=== PATIENT | male | born 1940 | race American Indian/Alaskan Native ===

== ENCOUNTER 2017-11-03 03:17 | Emergency (ER) | payer MEDICARE ==
[2017-11-03 03:25] VITALS: BP 140/60
--- NOTE | 2017-11-03 04:55 | XRay Report ---
FINAL REPORT EXAM: XR HIP 2-3V RT HISTORY: Rt hip pain post Fall TECHNIQUE: Two views of the right hip were obtained along with an AP view the pelvis. FINDINGS: There is generalized osteoporosis. The right hip joint appears normal. There is no evidence of fracture. The bony pelvic ring appears intact there is previous total left hip arthroplasty. The soft tissues are unremarkable. IMPRESSION: No evidence of acute fracture of the right hip or pelvis.
--- NOTE | 2017-11-03 04:58 | XRay Report ---
FINAL REPORT EXAM: XR KNEE 1-2V RT HISTORY: RIGHT KNEE PAIN TECHNIQUE: Three views of the right knee were submitted. FINDINGS: The patient is status post total right knee arthroplasty. On the lateral view, there is a suspicious linear radiolucency along the ventral aspect of the distal femoral metaphysis adjacent to the prosthesis. A localize hairline fracture cannot be excluded. Joint fluid is not seen. No additional hardware complications are seen. IMPRESSION: Status post total right knee arthroplasty. Questionable linear hairline fracture along the ventral aspect of the distal femoral metaphysis adjacent to the prosthesis.
[2017-11-03 07:19] LABS: Basophils % (Auto) 0.6 % (0.0-1.8); Eosinophils # (Auto) 0.1 K/mm3 (0.0-0.4); Eosinophils % (Auto) 0.8 % (0.0-4.3); Hematocrit 29.3 % (35.5-45.6); Hemoglobin 9.6 gm/dl (11.8-15.2); Lymphocytes # (Auto) 1.3 K/mm3 (1.2-5.4); Mean Corpuscular HGB Conc 33 % (32-34); Mean Corpuscular Hemoglobin 33 pg (28-32); Mean Corpuscular Volume 101 fl (84-94); Monocytes # (Auto) 0.5 K/mm3 (0.0-0.8); Monocytes % (Auto) 7.4 % (0.0-7.3); Platelet Count 138 K/mm3 (140-440); Red Blood Count 2.92 M/mm3 (3.65-5.03); Red Cell Distribution Width 15.6 % (13.2-15.2)
[2017-11-03 07:33] LABS: Calcium 8.4 mg/dL (8.4-10.2)
--- NOTE | 2017-11-03 08:17 | Emergency Department Report ---
HPI - General Chief Complaint: Fall Time Seen by Provider: 11/03/17 06:17 - HPI HPI: 77-year-old male presents to the emergency department by EMS after he fell out of his wheelchair while trend reach for something. He previously voiced to EMS that he had been drinking some alcohol this evening. He complains mostly of pain to the right hip and right knee. He has a history of hypertension. He also has a history of right knee replacement and is nonambulatory at baseline. He says that he lives alone and despite being in a wheelchair is able to get to the bathroom and take care of his activities of daily living. He denies hitting his head or any loss of consciousness. ED Past Medical Hx - Past Medical History Hx Hypertension: Yes - Social History Smoking Status: Never Smoker Substance Use Type: Alcohol - Medications Home Medications: Home Medications Medication Instructions Recorded Confirmed Last Taken Type Nitrofurantoin Monohyd/M-Cryst 100 mg PO BID #14 capsule 11/03/17 Unknown Rx [Macrobid 100 mg Capsule] ED Review of Systems ROS: Stated complaint: GLF Other details as noted in HPI Comment: All other systems reviewed and negative Constitutional: denies: chills, fever Eyes: denies: eye pain, eye discharge, vision change ENT: denies: ear pain, throat pain Respiratory: denies: cough, shortness of breath, wheezing Cardiovascular: denies: chest pain, palpitations Gastrointestinal: denies: abdominal pain, nausea, diarrhea Genitourinary: denies: urgency, dysuria Musculoskeletal: arthralgia, myalgia Skin: denies: rash, lesions Neurological: denies: headache, numbness Physical Exam - Physical Exam Vital Signs: Vital Signs 11/03/17 03:19 Temperature 98 F Pulse Rate 82 Respiratory 20 Rate Blood Pressure 140/60 [Left] O2 Sat by Pulse 97 Oximetry Physical Exam: GENERAL: The patient is well-developed well-nourished. HENT: Normocephalic. Atraumatic. Patient has moist mucous membranes. EYES: Extraocular motions are intact. Pupils equal reactive to light bilaterally. NECK: Supple. Trachea is midline. CHEST/LUNGS: Clear to auscultation. There is no respiratory distress noted. HEART/CARDIOVASCULAR: Regular. There is no tachycardia. There is no murmur. ABDOMEN: Abdomen is soft, nontender. Patient has normal bowel sounds. There is no abdominal distention. SKIN: Skin is warm and dry. NEURO: The patient is awake, alert, and oriented. The patient is cooperative. The patient has no focal neurologic deficits. The patient has normal speech. MUSCULOSKELETAL: There is some tenderness palpation to the right thigh and right knee but no obvious deformity. ED Course Vital Signs 11/03/17 03:19 Temperature 98 F Pulse Rate 82 Respiratory 20 Rate Blood Pressure 140/60 [Left] O2 Sat by Pulse 97 Oximetry ED Medical Decision Making - Lab Data Result diagrams: 11/03/17 06:56 11/03/17 06:56 - Radiology Data Radiology results: report reviewed CT HEAD WITHOUT CONTRAST: HISTORY: Fall, head injury. TECHNIQUE: Sequential CT images without contrast. FINDINGS: Images obtained show bilateral prominence of the sulci and ventricles. There are no abnormal intra- or extra-axial blood or fluid collections. There are no focal masses or evidence of mass effect. The chun white matter differentiation appears within normal limits. Regions of periventricular decreased attenuation are consistent with microangiopathic ischemic disease. The posterior fossa structures including the fourth ventricle, cerebellum, and brainstem appear normal. IMPRESSION: Evidence of atrophy and microangiopathic ischemic disease. No acute intracranial process noted. Transcribed By: TTR Dictated By: OFELIA PERAZA JR, MD Electronically Authenticated By: OFELIA PERAZA JR, MD Signed Date/Time: 11/03/[address] LOWER EXTREMITY RIGHT WITHOUT CONTRAST HISTORY: Questionable distal right femoral fracture on x-ray. TECHNIQUE: Helical CT with sagittal and coronal reformatted images through both femurs. Findings: Left hip replacement and right knee replacement generate artifact. The bony structures are demineralized but intact. There is no evidence for fracture. There is mild soft tissue swelling or edema near the right knee. IMPRESSION: No evidence for right femur fracture. Transcribed By: TTR Dictated By: OFELIA PERAZA JR, MD Electronically Authenticated By: OFELIA PERAZA JR, MD Signed Date/Time: 11/03/17 0857 - Medical Decision Making Patient presents after a ground level fall from his wheelchair. The patient has a history of some alcohol abuse and/or dependence and was found have a elevated blood alcohol level once again. CT of the head did not show any bleed , shift, mass or any acute process. He had x-rays done of the right hip, pelvis and right knee prior to my shift this morning and there was a questionable hairline fracture to the distal right femur. For this reason I did a CT of the right lower extremity that did not show any signs of any fracture. The patient is nonambulatory at baseline. His daughter came by and is arranging for transportation back home for him. The patient does live at home alone but is able to do his ADLs. He has a mild urinary tract infection we 'll start her on Macrobid. The daughter wants him to go to a detention or assisted living facility, but the patient has been resistant to this and since he still has the capacity to make his own decisions and is his own medical decision maker, he cannot be made to do this against his will. However I did spend some time with the patient trying to explain the need to stop his drinking for both his own medical benefits as well as the ability to continue to take care of himself at home, as what he desires to do. He's been encouraged to follow up with the primary care doctor in the next few days and return to ER with any worsening of symptoms or any acute distress. He was given a referral for a local orthopedist, Dr. Barrientos, in case he wants to follow up regarding his right leg pain - Differential Diagnosis fracture, dislocation, contusion, alcohol intoxication, dementia Critical Care Time: No Critical care attestation.: If time is entered above; I have spent that time in minutes in the direct care of this critically ill patient, excluding procedure time. ED Disposition Clinical Impression: Right leg pain, Renal insufficiency Fall from wheelchair Qualifiers: Encounter type: initial encounter Qualified Code(s): W05.0XXA - Fall from non- moving wheelchair, initial encounter Alcohol intoxication Qualifiers: Complication of substance-induced condition: uncomplicated Qualified Code(s): F10.920 - Alcohol use, unspecified with intoxication, uncomplicated Disposition: DC-01 TO HOME OR SELFCARE Is pt being admited?: No Condition: Stable Instructions: Alcohol Intoxication (ED), Abuse of Alcohol (ED), Arthralgia (ED) , Impaired Kidney Function (ED) Additional Instructions: Please follow up with a primary care physician. I have given you a referral for a local orthopedist, Dr. Barrientos, in case he would like to follow up regarding your leg pain. It is recommended that he stay away from any further alcohol use/abuse so you do not have any further falls and can continue with your activities of daily living. I have also given you a referral for a local manager document, Dr. Ashby, to follow up regarding your impaired kidney function. Return to the emergency Department with any worsening of your symptoms or any acute distress. Prescriptions: Nitrofurantoin Monohyd/M-Cryst [Macrobid 100 mg Capsule] 100 mg PO BID #14 capsule Referrals: MAIA BARRIENTOS MD [Staff Physician] - 3-5 Days VISH ASHBY MD [Staff Physician] - 3-5 Days Time of Disposition: 09:50
--- NOTE | 2017-11-03 09:02 | Cat Scan Report ---
CT HEAD WITHOUT CONTRAST: HISTORY: Fall, head injury. TECHNIQUE: Sequential CT images without contrast. FINDINGS: Images obtained show bilateral prominence of the sulci and ventricles. There are no abnormal intra- or extra-axial blood or fluid collections. There are no focal masses or evidence of mass effect. The chun white matter differentiation appears within normal limits. Regions of periventricular decreased attenuation are consistent with microangiopathic ischemic disease. The posterior fossa structures including the fourth ventricle, cerebellum, and brainstem appear normal. IMPRESSION: Evidence of atrophy and microangiopathic ischemic disease. No acute intracranial process noted.
--- NOTE | 2017-11-03 09:03 | Cat Scan Report ---
CT LOWER EXTREMITY RIGHT WITHOUT CONTRAST HISTORY: Questionable distal right femoral fracture on x-ray. TECHNIQUE: Helical CT with sagittal and coronal reformatted images through both femurs. Findings: Left hip replacement and right knee replacement generate artifact. The bony structures are demineralized but intact. There is no evidence for fracture. There is mild soft tissue swelling or edema near the right knee. IMPRESSION: No evidence for right femur fracture.
[2017-11-03] MEDS ORDERED: KIONEX PO ONE (09:51)
[2017-11-03] MEDS ORDERED: VITAMIN B-1 100 MG, FOLVITE 1 MG, INFUVITE 10 ML in NACL 0.9% 1000 ML 1,000 ML IV ONE (10:00)
[2017-11-03] MEDS ORDERED: VITAMIN B-1 PO ONE (10:51)
[2017-11-03] MEDS ORDERED: THERAGRAN Tab PO ONE (10:51)
[2017-11-03 12:28] LABS: Bacteria,Urine 3+ /HPF (Negative); Bilirubin,Urine NEG (Negative); Blood,Urine LG (Negative); Color,Urine Yellow (Yellow); Granular Casts,Urine 1 /LPF; Hyaline Casts,Urine 1 /LPF; Nitrite,Urine NEG (Negative); Protein,Urine <15 mg/dL mg/dL (Negative); Urobilinogen,Urine < 2.0 mg/dL (<2.0)
== END 2017-11-03 15:30 | disposition home or self-care (01) ==
LOC: ED 03:17
DX: F10.920 Alcohol use, unspecified with intoxication, uncomplicated (principal); M25.561 Pain in right knee; N28.9 Disorder of kidney and ureter, unspecified; I10 Essential (primary) hypertension
CPT/HCPCS: 36415; 70450; 73502; 73560; 73700; 80048; 81001; 82550; 85025; 99284; G0480; J3411; J7030; 80320

== ENCOUNTER 2018-05-29 07:34 | Emergency (ER) | payer MEDICARE ==
--- NOTE | 2018-05-29 10:15 | Emergency Department Report ---
ED Fall HPI - General Chief Complaint: Fall Stated Complaint: FALL/KNEE PAIN Time Seen by Provider: 05/29/18 10:03 Source: patient, EMS, old records reviewed Mode of arrival: Wheelchair - History of Present Illness Initial Comments: Mr. Horne is 78 yo male who presents after fall out of bed. this morning. He missed the chair and slipped. He was normally uses a chiar to move around. He lives alone but has supportive daughter. moderately severe pain in left thigh "in the muscle". PCP Dr. 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 Witnessed: no Place Fall Occurred: home Loss of Consciousness: none Prolonged Down Time?: no Symptoms Prior to Fall: none Location - Extremities: Left: Thigh Severity: moderate Quality: sharp, dull, aching Context: tripped/slipped, history of frequent falls Associated Symptoms: denies - Related Data Previous Rx's Medication Instructions Recorded Last Taken Type Nitrofurantoin Monohyd/M-Cryst 100 mg PO BID #14 capsule 11/03/17 Unknown Rx [Macrobid 100 mg Capsule] traMADol [Ultram 50 MG tab] 50 mg PO TID PRN #10 tablet 05/29/18 Unknown Rx Allergies Allergy/AdvReac Type Severity Reaction Status Date / Time No Known Allergies Allergy Verified 11/03/17 09:18 ED Review of Systems ROS: Stated complaint: FALL/KNEE PAIN Other details as noted in HPI Comment: All other systems reviewed and negative Constitutional: denies: fever, malaise Respiratory: denies: cough Cardiovascular: denies: chest pain ED Past Medical Hx - Past Medical History Previous Medical History?: Yes Hx Hypertension: Yes - Surgical History Past Surgical History?: Yes Additional Surgical History: rt knee sx. - Social History Smoking Status: Never Smoker Substance Use Type: Alcohol - Medications Home Medications: Home Medications Medication Instructions Recorded Confirmed Last Taken Type Nitrofurantoin Monohyd/M-Cryst 100 mg PO BID #14 capsule 11/03/17 Unknown Rx [Macrobid 100 mg Capsule] traMADol [Ultram 50 MG tab] 50 mg PO TID PRN #10 tablet 05/29/18 Unknown Rx ED Physical Exam - General Limitations: No Limitations General appearance: alert, in no apparent distress - Head Head exam: Present: atraumatic, normocephalic - Eye Eye exam: Present: normal appearance, PERRL, EOMI - ENT ENT exam: Present: mucous membranes moist - Neck Neck exam: Present: normal inspection. Absent: tenderness, meningismus - Respiratory Respiratory exam: Present: normal lung sounds bilaterally. Absent: respiratory distress, wheezes, rales, rhonchi - Cardiovascular Cardiovascular Exam: Present: regular rate, normal rhythm, normal heart sounds. Absent: systolic murmur, diastolic murmur, rubs, gallop - GI/Abdominal GI/Abdominal exam: Present: soft, normal bowel sounds. Absent: distended, tenderness - Extremities Exam Extremities exam: Present: normal inspection, other (no edema or point tenderness surgical scar right knee, surgical scar left hip 2+ DP pulses bilaterally) - Back Exam Back exam: Present: normal inspection, full ROM. Absent: tenderness, CVA tenderness (R), CVA tenderness (L), muscle spasm, paraspinal tenderness, vertebral tenderness - Neurological Exam Neurological exam: Present: alert, oriented X3 - Psychiatric Psychiatric exam: Present: normal affect, normal mood - Skin Skin exam: Present: warm, dry, intact, normal color. Absent: rash ED Course Vital Signs 05/29/18 05/29/18 05/29/18 08:01 08:23 08:29 Temperature 98.0 F 98.0 F Pulse Rate 87 87 Respiratory 16 16 Rate Blood Pressure 162/53 Blood Pressure 162/53 162/53 [Left] O2 Sat by Pulse 100 100 100 Oximetry 05/29/18 05/29/18 05/29/18 08:30 08:45 09:00 Temperature Pulse Rate Respiratory Rate Blood Pressure 169/62 181/68 179/67 Blood Pressure [Left] O2 Sat by Pulse 97 98 99 Oximetry 05/29/18 05/29/18 05/29/18 09:15 09:30 09:46 Temperature Pulse Rate Respiratory Rate Blood Pressure 170/63 162/61 155/54 Blood Pressure [Left] O2 Sat by Pulse 99 99 97 Oximetry 05/29/18 05/29/18 05/29/18 10:00 10:15 10:56 Temperature Pulse Rate Respiratory 17 Rate Blood Pressure 154/59 174/66 Blood Pressure [Left] O2 Sat by Pulse 97 100 Oximetry 05/29/18 05/29/18 05/29/18 10:57 11:00 11:15 Temperature Pulse Rate Respiratory Rate Blood Pressure 174/66 181/120 178/69 Blood Pressure [Left] O2 Sat by Pulse 100 99 100 Oximetry 05/29/18 05/29/18 05/29/18 11:30 11:46 12:00 Temperature Pulse Rate Respiratory Rate Blood Pressure 189/67 171/60 171/60 Blood Pressure [Left] O2 Sat by Pulse 99 100 100 Oximetry 05/29/18 05/29/18 05/29/18 12:15 12:31 12:45 Temperature Pulse Rate Respiratory Rate Blood Pressure 191/69 168/58 186/67 Blood Pressure [Left] O2 Sat by Pulse 98 95 97 Oximetry ED Medical Decision Making - Radiology Data Radiology results: image reviewed interpreted by me: Right knee: [address] with surrounding osteopenia no fracture no dislocation Left hip 3 views: Prosthesis in place no fracture or dislocation Left femur: 2 views no fracture no dislocation no soft tissue swelling - Medical Decision Making Mr. Horne presents with fall out of bed. No fracture or dislocation according to radiographs performed of left hip/femur and bilateral knees. He has full range of motion in left hip. According to previous documentation he has limited ability to ambulate. He is able to prepare simple meals. he does eat and clean himself. Prescribed tramadol. Discharged home. He desired ambulanace transfer home. He stated that his 2 daughters are working and would be unable to transport home. Critical care attestation.: If time is entered above; I have spent that time in minutes in the direct care of this critically ill patient, excluding procedure time. ED Disposition Clinical Impression: Fall, Contusion of right knee, Contusion of left thigh Disposition: DC-01 TO HOME OR SELFCARE Is pt being admited?: No Does the pt Need Aspirin: No Condition: Stable Instructions: Contusion in Adults (ED) Prescriptions: traMADol [Ultram 50 MG tab] 50 mg PO TID PRN #10 tablet PRN Reason: Pain , Severe (7-10) Time of Disposition: 13:21
[2018-05-29] MEDS ORDERED: ULTRAM PO ONE (10:16)
--- NOTE | 2018-05-29 15:54 | XRay Report ---
FINAL REPORT EXAM: XR FEMUR 2+V LT HISTORY: fall pain COMPARISON: None. TECHNIQUE: Three views of the left femur FINDINGS: There is a left hip arthroplasty. The femur is intact without acute fracture or dislocation. There is osteophyte formation at the level of the knee. There is no joint effusion. The overlying soft tissues are intact. IMPRESSION: No acute bony abnormality of the left femur. Left hip arthroplasty. No acute hardware complication.
--- NOTE | 2018-05-29 15:56 | XRay Report ---
FINAL REPORT EXAM: XR HIP 2-3V LT HISTORY: fall pain COMPARISON: None. TECHNIQUE: Three views of the left hip FINDINGS: There is a left hip arthroplasty. The femoral and acetabular components are intact and in anatomic alignment. There is no acute bony fracture or dislocation. The sacroiliac joints and symphysis pubis are intact. There is diffuse osteopenia. The overlying soft tissues are normal. IMPRESSION: Left hip arthroplasty. No acute hardware complication. No acute fracture or dislocation.
--- NOTE | 2018-05-29 16:02 | XRay Report ---
FINAL REPORT EXAM: XR KNEE BILAT 3V HISTORY: fall/pain COMPARISON: Radiographs of the right knee performed on 11/03/2017 TECHNIQUE: Three views of each knee FINDINGS: Right knee: There is a right knee arthroplasty. The femoral and tibial components appear intact. There is no acute bony fracture or dislocation. The overlying soft tissues are normal. Left knee: There is tricompartmental joint space narrowing with osteophyte formation. There is no joint effusion. The overlying soft tissues are intact. There is an old fracture of the proximal fibula. IMPRESSION: Right knee arthroplasty without acute hardware complication. 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 Remote fracture of the left proximal fibula.
[2018-05-29 17:31] VITALS: BP 181/59
== END 2018-05-29 17:10 | disposition home or self-care (01) ==
LOC: ED 07:34
DX: S70.12XA Contusion of left thigh, initial encounter (principal); S80.01XA Contusion of right knee, initial encounter; I10 Essential (primary) hypertension; M25.552 Pain in left hip; W01.0XXA Fall on same level from slipping, tripping and stumbling without subsequent striking against object, initial encounter; Y93.89 Activity, other specified; Y99.8 Other external cause status; Y92.019 Unspecified place in single-family (private) house as the place of occurrence of the external cause

== ENCOUNTER 2019-08-18 12:17 | Emergency (ER) | payer MEDICARE ==
[2019-08-18] MEDS ORDERED: guaiFENesin 100 MG/5 ML ORAL LIQD PO ONE (13:25)
[2019-08-18] MEDS ORDERED: cloNIDine 0.2 MG TAB PO ONE (13:25)
--- NOTE | 2019-08-18 13:37 | Emergency Department Report ---
- General Chief Complaint: Upper Respiratory Infection Stated Complaint: GENERAL SICKNESS Time Seen by Provider: 08/18/19 13:25 Source: EMS Mode of arrival: Stretcher Limitations: No Limitations - History of Present Illness Initial Comments: This is a 79-year-old male who presents to ED complaining of intermittent dry cough and for the past 2-3 days. Patient denies fever, chills, nausea vomiting or chest pain, shortness of breath. he has a past medical history of hypertension well as chronic kidney disease and states that he takes his medication daily. 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 Patient states he has not taken his pressure medication today because he felt sick, though he wanted to come in and to be evaluated. MD Complaint: cough, nasal congestion Severity: mild Severity scale (0 -10): 4 - Related Data Previous Rx's Medication Instructions Recorded Last Taken Type Nitrofurantoin Monohyd/M-Cryst 100 mg PO BID #14 capsule 11/03/17 Unknown Rx [Macrobid 100 mg Capsule] Acetaminophen [Acetaminophen TAB] 650 mg PO Q4-6H PRN #30 tablet 06/11/18 Unknown Rx Calcium Carb/Vit D3/Minerals 1 each PO BID #60 tablet 06/11/18 Unknown Rx [Caltrate Plus] amLODIPine 5 mg PO QDAY #30 tablet 06/11/18 Unknown Rx hydroCHLOROthiazide [HCTZ] 25 mg PO QDAY #30 tablet 06/11/18 Unknown Rx traMADoL [Ultram 50 MG tab] 50 mg PO TID PRN #10 tablet 06/11/18 Unknown Rx Acetamin/Codeine 120-12Mg/5 ml 5 ml PO TID PRN #60 ml 08/18/19 Unknown Rx [Tylenol/Codeine] Benzonatate [Tessalon Perles] 100 mg PO Q8HR #20 capsule 08/18/19 Unknown Rx Allergies Allergy/AdvReac Type Severity Reaction Status Date / Time No Known Allergies Allergy Verified 11/03/17 09:18 ED Review of Systems ROS: Stated complaint: GENERAL SICKNESS Other details as noted in HPI ED Past Medical Hx - Past Medical History Previous Medical History?: Yes Hx Hypertension: Yes Hx Arthritis: Yes Hx HIV: No - Surgical History Past Surgical History?: Yes Additional Surgical History: rt knee sx. - Social History Smoking Status: Unknown if ever smoked Substance Use Type: None - Medications Home Medications: Home Medications Medication Instructions Recorded Confirmed Last Taken Type Nitrofurantoin Monohyd/M-Cryst 100 mg PO BID #14 capsule 11/03/17 06/09/18 Unknown Rx [Macrobid 100 mg Capsule] Acetaminophen [Acetaminophen TAB] 650 mg PO Q4-6H PRN #30 tablet 06/11/18 Unknown Rx Calcium Carb/Vit D3/Minerals 1 each PO BID #60 tablet 06/11/18 Unknown Rx [Caltrate Plus] amLODIPine 5 mg PO QDAY #30 tablet 06/11/18 Unknown Rx hydroCHLOROthiazide [HCTZ] 25 mg PO QDAY #30 tablet 06/11/18 Unknown Rx traMADoL [Ultram 50 MG tab] 50 mg PO TID PRN #10 tablet 06/11/18 Unknown Rx Acetamin/Codeine 120-12Mg/5 ml 5 ml PO TID PRN #60 ml 08/18/19 Unknown Rx [Tylenol/Codeine] Benzonatate [Tessalon Perles] 100 mg PO Q8HR #20 capsule 08/18/19 Unknown Rx ED Physical Exam - General Limitations: No Limitations ED Course Vital Signs 08/18/19 08/18/19 08/18/19 12:48 13:09 13:31 Temperature 98.2 F Pulse Rate 77 71 66 Pulse Rate [ Anterior Bilateral Throughout] Respiratory 18 20 19 Rate Respiratory Rate [Anterior Bilateral Throughout] Blood Pressure 210/90 184/75 Blood Pressure [Right] O2 Sat by Pulse 98 100 Oximetry 08/18/19 08/18/19 08/18/19 14:01 14:31 15:00 Temperature Pulse Rate 67 73 76 Pulse Rate [ Anterior Bilateral Throughout] Respiratory 19 20 21 Rate Respiratory Rate [Anterior Bilateral Throughout] Blood Pressure 195/65 197/77 181/66 Blood Pressure [Right] O2 Sat by Pulse 96 98 96 Oximetry 08/18/19 08/18/19 08/18/19 15:19 15:30 15:31 Temperature Pulse Rate 76 77 74 Pulse Rate [ Anterior Bilateral Throughout] Respiratory 17 21 Rate Respiratory Rate [Anterior Bilateral Throughout] Blood Pressure 181/66 199/83 Blood Pressure 100/59 [Right] O2 Sat by Pulse 100 96 Oximetry 08/18/19 08/18/19 08/18/19 15:46 16:00 16:57 Temperature Pulse Rate 73 63 Pulse Rate [ 108 H Anterior Bilateral Throughout] Respiratory 16 21 Rate Respiratory 20 Rate [Anterior Bilateral Throughout] Blood Pressure 173/71 Blood Pressure 107/50 [Right] O2 Sat by Pulse 100 96 Oximetry 08/18/19 17:15 Temperature Pulse Rate Pulse Rate [ Anterior Bilateral Throughout] Respiratory Rate Respiratory Rate [Anterior Bilateral Throughout] Blood Pressure 167/72 Blood Pressure [Right] O2 Sat by Pulse 85 Oximetry - Reevaluation(s) Reevaluation #1: She is resting comfortably ED bed. On reassessment, patient saturating To 96. albuterol inhaler nebulized treatment ordered. Discussed chest x-ray findings with the patient. Patient understands 08/18/19 15:34 ED Medical Decision Making - Lab Data Result diagrams: 08/18/19 14:31 08/18/19 14:31 Laboratory Last Values WBC 5.3 K/mm3 (4.5-11.0) 08/18/19 14:31 RBC 2.54 M/mm3 (3.65-5.03) L 08/18/19 14:31 Hgb 8.1 gm/dl (11.8-15.2) L 08/18/19 14:31 Hct 25.0 % (35.5-45.6) L 08/18/19 14:31 MCV 98 fl (84-94) H 08/18/19 14:31 MCH 32 pg (28-32) 08/18/19 14:31 MCHC 32 % (32-34) 08/18/19 14:31 RDW 16.2 % (13.2-15.2) H 08/18/19 14:31 Plt Count 130 K/mm3 (140-440) L 08/18/19 14:31 Lymph % (Auto) 23.3 % (13.4-35.0) 08/18/19 14:31 Casey % (Auto) 7.9 % (0.0-7.3) H 08/18/19 14:31 Eos % (Auto) 2.3 % (0.0-4.3) 08/18/19 14:31 Baso % (Auto) 0.5 % (0.0-1.8) 08/18/19 14:31 Lymph # 1.2 K/mm3 (1.2-5.4) 08/18/19 14:31 Casey # 0.4 K/mm3 (0.0-0.8) 08/18/19 14:31 Eos # 0.1 K/mm3 (0.0-0.4) 08/18/19 14:31 Baso # 0.0 K/mm3 (0.0-0.1) 08/18/19 14:31 Seg Neutrophils % 66.0 % (40.0-70.0) 08/18/19 14:31 Seg Neutrophils # 3.5 K/mm3 (1.8-7.7) 08/18/19 14:31 Sodium 142 mmol/L (137-145) 08/18/19 14:31 Potassium 4.8 mmol/L (3.6-5.0) 08/18/19 14:31 Chloride 113.2 mmol/L (98-107) H 08/18/19 14:31 Carbon Dioxide 16 mmol/L (22-30) L 08/18/19 14:31 Anion Gap 18 mmol/L 08/18/19 14:31 BUN 27 mg/dL (9-20) H 08/18/19 14:31 Creatinine 2.3 mg/dL (0.8-1.5) H 08/18/19 14:31 Estimated GFR 33 ml/min 08/18/19 14:31 BUN/Creatinine Ratio 12 % 08/18/19 14:31 Glucose 95 mg/dL (75-100) 08/18/19 14:31 Calcium 8.6 mg/dL (8.4-10.2) 08/18/19 14:31 - EKG Data EKG shows normal: sinus rhythm Rate: normal - EKG Data Interpretation: normal EKG - Radiology Data Radiology results: report reviewed, image reviewed INDICATION / CLINICAL INFORMATION: Chest Pain. COMPARISON: Chest CT on 06/10/2018. FINDINGS: SUPPORT DEVICES: None. HEART / MEDIASTINUM: No significant abnormality. LUNGS / PLEURA: No significant pulmonary or pleural abnormality. No pneumothorax. ADDITIONAL FINDINGS: No significant additional findings. IMPRESSION: 1. No acute findings. Signer Name: Kiko Augustine MD Signed: 08/18/2019 2:00 PM Workstation Name: [id number] Transcribed By: LILY Dictated By: Kiko Augustine MD Electronically Authenticated By: Kiko Augustine MD Signed Date/Time: 08/18/19 1400 - Medical Decision Making 79-year-old male who presents with upper respiratory infection. Chest x-ray shows no acute findings. EKG shows no acute findings. Vital signs patient is a acute distress. Clinic and was given in ED to reduce blood pressure. Patient had good ED stay. I discussed all findings with the patient. Patient nods with understanding and I discussed the patient a follow-up extremity physician which he agrees to do that. Patient had no respiratory distress or any acute distress while in the ED. Critical care attestation.: If time is entered above; I have spent that time in minutes in the direct care of this critically ill patient, excluding procedure time. ED Disposition Clinical Impression: Bronchitis Upper respiratory infection Qualifiers: URI type: unspecified viral URI Qualified Code(s): J06.9 - Acute upper respiratory infection, unspecified Disposition: TO HOME OR SELFCARE Is pt being admited?: No Does the pt Need Aspirin: No Condition: Stable Instructions: Upper Respiratory Infection (ED), Acute Bronchitis (ED) Additional Instructions: Follow-up primary care physician Chest x-ray was normal no signs of infection. Please take medication as prescribed. I see have any worsening symptoms return to ED Prescriptions: Benzonatate [Tessalon Perles] 100 mg PO Q8HR #20 capsule Acetamin/Codeine 120-12Mg/5 ml [Tylenol/Codeine] 5 ml PO TID PRN #60 ml PRN Reason: Pain Referrals: [facility] [Outside] - 3-5 Days [facility] [Outside] - 3-5 Days Forms: Accompanied Note, Work/School Release Form(ED) Time of Disposition: 15:29
--- NOTE | 2019-08-18 14:05 | XRay Report ---
CHEST 1 VIEW 08/18/2019 1:23 PM INDICATION / CLINICAL INFORMATION: Chest Pain. COMPARISON: Chest CT on 06/10/2018. FINDINGS: SUPPORT DEVICES: None. HEART / MEDIASTINUM: No significant abnormality. LUNGS / PLEURA: No significant pulmonary or pleural abnormality. No pneumothorax. ADDITIONAL FINDINGS: No significant additional findings. IMPRESSION: 1. No acute findings. Signer Name: Kiko Augustine MD Signed: 08/18/2019 2:00 PM Workstation Name: [email or web address]
[2019-08-18 14:44] LABS: Basophils % (Auto) 0.5 % (0.0-1.8); Eosinophils # (Auto) 0.1 K/mm3 (0.0-0.4); Eosinophils % (Auto) 2.3 % (0.0-4.3); Hemoglobin 8.1 gm/dl (11.8-15.2); Lymphocytes # (Auto) 1.2 K/mm3 (1.2-5.4); Lymphocytes % (Auto) 23.3 % (13.4-35.0); Mean Corpuscular HGB Conc 32 % (32-34); Mean Corpuscular Volume 98 fl (84-94); Monocytes # (Auto) 0.4 K/mm3 (0.0-0.8); Monocytes % (Auto) 7.9 % (0.0-7.3); Platelet Count 130 K/mm3 (140-440); Red Blood Count 2.54 M/mm3 (3.65-5.03); Red Cell Distribution Width 16.2 % (13.2-15.2)
[2019-08-18 15:05] LABS: Calcium 8.6 mg/dL (8.4-10.2)
[2019-08-18] MEDS ORDERED: ALBUTEROL 2.5 MG/3 ML NEBU IH ONE (15:32)
[2019-08-18 18:00] VITALS: BP 167/72
== END 2019-08-18 22:00 | disposition home or self-care (01) ==
LOC: ED 12:17
DX: J40 Bronchitis, not specified as acute or chronic (principal); J06.9 Acute upper respiratory infection, unspecified; I12.9 Hypertensive chronic kidney disease with stage 1 through stage 4 chronic kidney disease, or unspecified chronic kidney disease; N18.9 Chronic kidney disease, unspecified; M19.90 Unspecified osteoarthritis, unspecified site; Z79.899 Other long term (current) drug therapy
CPT/HCPCS: 36415; 71045; 80048; 85025; 93005; 93010; 94640; 94644

== ENCOUNTER 2021-05-21 20:01 | Emergency (ER) | payer MEDICARE ==
[2021-05-21 21:49] LABS: Albumin 4.1 g/dL (3.9-5); Calcium 7.9 mg/dL (8.4-10.2)
[2021-05-21 22:02] LABS: Basophils % (Auto) 0.7 % (0.0-1.8); Eosinophils # (Auto) 0.2 K/mm3 (0.0-0.4); Eosinophils % (Auto) 3.2 % (0.0-4.3); Hematocrit 27.7 % (35.5-45.6); Hemoglobin 8.4 gm/dl (11.8-15.2); Lymphocytes # (Auto) 1.8 K/mm3 (1.2-5.4); Lymphocytes % (Auto) 27.2 % (13.4-35.0); Mean Corpuscular HGB Conc 31 % (32-34); Mean Corpuscular Volume 106 fl (84-94); Monocytes # (Auto) 0.6 K/mm3 (0.0-0.8); Monocytes % (Auto) 8.9 % (0.0-7.3); Platelet Count 163 K/mm3 (140-440); Red Blood Count 2.62 M/mm3 (3.65-5.03); Red Cell Distribution Width 16.2 % (13.2-15.2)
== END 2021-05-22 00:55 | disposition left against medical advice (07) ==
LOC: ED 20:01
DX: D64.9 Anemia, unspecified (principal); Z53.21 Procedure and treatment not carried out due to patient leaving prior to being seen by health care provider
CPT/HCPCS: 36415; 80053; 85025

== ENCOUNTER 2021-12-01 07:09 | Emergency (ER) | payer MEDICARE ==
[2021-12-01] MEDS ORDERED: cloNIDine 0.1 MG TAB PO ONE (07:14)
[2021-12-01 07:40] LABS: Basophils # (Auto) 0.1 K/mm3 (0.0-0.1); Basophils % (Auto) 0.6 % (0.0-1.8); Eosinophils # (Auto) 0.1 K/mm3 (0.0-0.4); Eosinophils % (Auto) 1.4 % (0.0-4.3); Hematocrit 28.4 % (35.5-45.6); Hemoglobin 9.4 gm/dl (11.8-15.2); Lymphocytes # (Auto) 1.2 K/mm3 (1.2-5.4); Lymphocytes % (Auto) 12.9 % (13.4-35.0); Mean Corpuscular HGB Conc 33 % (32-34); Mean Corpuscular Volume 92 fl (84-94); Monocytes # (Auto) 0.5 K/mm3 (0.0-0.8); Monocytes % (Auto) 5.7 % (0.0-7.3); Platelet Count 158 K/mm3 (140-440); Red Blood Count 3.09 M/mm3 (3.65-5.03)
[2021-12-01 08:05] LABS: C-Reactive Protein 1.3 mg/dL (0.00-1.30); Calcium 7.9 mg/dL (8.4-10.2); Uric Acid 6.9 mg/dL (3.5-7.6)
--- NOTE | 2021-12-01 08:29 | XRay Report ---
LEFT HAND 3 VIEWS INDICATION: swelling. COMPARISON: None. IMPRESSION: Osteopenia is evident. There is mild to moderate soft tissue swelling primarily at the l evel of the wrist. On the AP view only, there is suggestion of a subtle nondisplaced cortical defect near the base of the fourth metacarpal. This is not clearly identified on the remaining views. A nond isplaced fracture could be considered if there is point tenderness. The remaining bony structures are intact. Mild diffuse osteoarthritic joint space narrowing throughout the fingers and mild osteoarthr itic changes at the wrist are noted. No erosive joint pathology. If further evaluation is needed, CT could be obtained. Signer Name: James Velasquez Jr, MD Signed: 12/01/2021 8:25 AM Workstation Name: [id number]
[2021-12-01] MEDS ORDERED: cloNIDine 0.2 MG TAB PO ONE (08:39)
[2021-12-01] MEDS ORDERED: HYDROcodone/ACETAMINOPHEN 5-325 MG TAB PO ONE (08:39)
--- NOTE | 2021-12-01 10:00 | Cat Scan Report ---
CT upper extrem LT wo con INDICATION / CLINICAL INFORMATION: abnormal x ray. TECHNIQUE: CT images of the left wrist and hand obtained without intravenous contrast. All CT scans at this loca tion are performed using CT dose reduction for ALARA by means of automated exposure control. COMPARISON: Same-day radiograph FINDINGS: BONES/JOINT(S): There is diffuse osteopenia. No acute fracture is identified. Specifically, there is no discrete fracture at the base of the fourth metacarpal. Mild scattered osteoarthritis, pronounced at the thumb CMC joint. Scatter chondrocalcinosis. No osseous erosions. MUSCLES / TENDONS: No significant abnormality. SOFT TISSUES: No significant abnormality. ADDITIONAL FINDINGS: None. IMPRESSION: 1. No acute osseous findings of the left hand/wrist. No evidence of fracture. 2. 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 Signer Name: Tutu Wiley MD Signed: 12/01/2021 9:55 AM Workstation Name: [email or web address]
--- NOTE | 2021-12-01 10:15 | Emergency Department Report ---
ED Extremity Problem HPI - General Chief complaint: Extremity Problem,Nontraumatic Stated complaint: L HAND SWELLING/HTN Time Seen by Provider: 12/01/21 07:13 Source: patient, EMS Mode of arrival: Stretcher Limitations: No Limitations - History of Present Illness Initial comments: L HAND SWELLING SINCE THIS MORNING. DENIES INJURIES. NO DEFORMITIES NOTED. BP 200/92 MD Complaint: extremity pain, extremity swelling -: Gradual Location: left Radiation: none Severity scale (0 -10): 3 Quality: aching Consistency: constant Improves with: nothing Worsens with: nothing - Related Data Previous Rx's Medication Instructions Recorded Last Taken Type Nitrofurantoin Monohyd/M-Cryst 100 mg PO BID #14 capsule 11/03/17 Unknown Rx [Macrobid 100 mg Capsule] Acetaminophen [Acetaminophen TAB] 650 mg PO Q4-6H PRN #30 tablet 06/11/18 Unknown Rx Calcium Carb/Vit D3/Minerals 1 each PO BID #60 tablet 06/11/18 Unknown Rx [Caltrate Plus] amLODIPine 5 mg PO QDAY #30 tablet 06/11/18 Unknown Rx hydroCHLOROthiazide [HCTZ] 25 mg PO QDAY #30 tablet 06/11/18 Unknown Rx traMADoL [Ultram 50 MG tab] 50 mg PO TID PRN #10 tablet 06/11/18 Unknown Rx Acetamin/Codeine 120-12Mg/5 ml 5 ml PO TID PRN #60 ml 08/18/19 Unknown Rx [Tylenol/Codeine] Benzonatate [Tessalon Perles] 100 mg PO Q8HR #20 capsule 08/18/19 Unknown Rx Allergies Allergy/AdvReac Type Severity Reaction Status Date / Time No Known Allergies Allergy Verified 12/01/21 07:12 ED Review of Systems ROS: Stated complaint: L HAND SWELLING/HTN Other details as noted in HPI Constitutional: denies: chills, fever Eyes: denies: eye pain, eye discharge, vision change ENT: denies: ear pain, throat pain Respiratory: denies: cough, shortness of breath, wheezing Cardiovascular: denies: chest pain, palpitations Endocrine: no symptoms reported Gastrointestinal: denies: abdominal pain, nausea, diarrhea Genitourinary: denies: urgency, dysuria Musculoskeletal: denies: back pain, joint swelling, arthralgia Skin: denies: rash, lesions Neurological: denies: headache, weakness, paresthesias Psychiatric: denies: anxiety, depression Hematological/Lymphatic: denies: easy bleeding, easy bruising ED Past Medical Hx - Past Medical History Hx Hypertension: Yes Hx Arthritis: Yes Hx HIV: No Additional medical history: Patient reports history of gout - Surgical History Additional Surgical History: rt knee sx. - Social History Smoking Status: Unknown if ever smoked Substance Use Type: None - Medications Home Medications: Home Medications Medication Instructions Recorded Confirmed Last Taken Type Nitrofurantoin Monohyd/M-Cryst 100 mg PO BID #14 capsule 11/03/17 06/09/18 Unknown Rx [Macrobid 100 mg Capsule] Acetaminophen [Acetaminophen TAB] 650 mg PO Q4-6H PRN #30 tablet 06/11/18 Unknown Rx Calcium Carb/Vit D3/Minerals 1 each PO BID #60 tablet 06/11/18 Unknown Rx [Caltrate Plus] amLODIPine 5 mg PO QDAY #30 tablet 06/11/18 Unknown Rx hydroCHLOROthiazide [HCTZ] 25 mg PO QDAY #30 tablet 06/11/18 Unknown Rx traMADoL [Ultram 50 MG tab] 50 mg PO TID PRN #10 tablet 06/11/18 Unknown Rx Acetamin/Codeine 120-12Mg/5 ml 5 ml PO TID PRN #60 ml 08/18/19 Unknown Rx [Tylenol/Codeine] Benzonatate [Tessalon Perles] 100 mg PO Q8HR #20 capsule 08/18/19 Unknown Rx ED Physical Exam - General Limitations: No Limitations General appearance: alert, in no apparent distress - Head Head exam: Present: atraumatic, normocephalic - Eye Eye exam: Present: normal appearance - ENT ENT exam: Present: mucous membranes moist - Neck Neck exam: Present: normal inspection - Respiratory Respiratory exam: Present: normal lung sounds bilaterally. Absent: respiratory distress - Cardiovascular Cardiovascular Exam: Present: regular rate, normal rhythm. Absent: systolic murmur, diastolic murmur, rubs, gallop - GI/Abdominal GI/Abdominal exam: Present: soft, normal bowel sounds - Rectal Rectal exam: Present: deferred - Extremities Exam Extremities exam: Present: normal inspection - Expanded Upper Extremity Exam Left Hand Wrist exam: Present: tenderness, swelling - Back Exam Back exam: Present: normal inspection - Neurological Exam Neurological exam: Present: alert, oriented X3 - Psychiatric Psychiatric exam: Present: normal affect, normal mood - Skin Skin exam: Present: warm, dry, intact, normal color. Absent: rash ED Course Vital Signs 12/01/21 12/01/21 12/01/21 07:10 07:32 07:46 Temperature 97.7 F Pulse Rate 94 H 86 Respiratory 14 23 Rate Blood Pressure 227/89 Blood Pressure 248/91 [Left] O2 Sat by Pulse 98 95 95 Oximetry 12/01/21 12/01/21 12/01/21 08:00 08:15 08:30 Temperature Pulse Rate 87 82 84 Respiratory 23 23 19 Rate Blood Pressure 227/89 227/89 Blood Pressure [Left] O2 Sat by Pulse 95 96 97 Oximetry 12/01/21 12/01/21 12/01/21 08:42 08:46 09:16 Temperature Pulse Rate 83 86 Respiratory 18 28 H Rate Blood Pressure 236/93 236/93 236/93 Blood Pressure [Left] O2 Sat by Pulse 96 94 Oximetry 12/01/21 12/01/21 09:24 09:29 Temperature 98.7 F Pulse Rate 76 Respiratory 24 Rate Blood Pressure Blood Pressure 204/74 [Left] O2 Sat by Pulse 95 98 Oximetry - Reevaluation(s) Reevaluation #1: 12/01/21 10:13 WORK UP SHOWED RENAL IMPAIRMENT , CHORNIC CLONIIDNE GIVEN bp IS 160-/70 , ct SHOWED NO FRACTURE SPLINTED HISTORY OF GOUT ED Medical Decision Making - Lab Data Result diagrams: 12/01/21 07:22 12/01/21 07:22 Critical care attestation.: If time is entered above; I have spent that time in minutes in the direct care of this critically ill patient, excluding procedure time. ED Disposition Clinical Impression: Arthritis of left hand, Uncontrolled hypertension Disposition: 01 HOME / SELF CARE / HOMELESS Is pt being admited?: No Does the pt Need Aspirin: No Condition: Stable Instructions: Hypertension (ED), Preventing Osteoarthritis, Adult, Osteoarthritis, Hypertension, Adult, [id number] Referrals: PRIMARY CARE, [Primary Care Provider] - 3-5 Days
[2021-12-01 10:48] VITALS: BP 183/70
== END 2021-12-01 12:11 | disposition home or self-care (01) ==
LOC: ED 07:09
DX: M19.042 Primary osteoarthritis, left hand (principal); I10 Essential (primary) hypertension
CPT/HCPCS: 36415; 80053; 84550; 85025; 86140; 99284; 99285

== ENCOUNTER 2022-04-14 04:57 | Emergency (ER) | payer MEDICARE ==
[2022-04-14] MEDS ORDERED: MORPHINE 4 MG/1 ML INJ IV ONE (06:08)
[2022-04-14] MEDS ORDERED: SODIUM CHLORIDE 0.9% 1000 ML 1,000 ML IV ONE (06:08)
[2022-04-14] MEDS ORDERED: ONDANSETRON 4 MG/2 ML INJ IV ONE (06:08)
--- NOTE | 2022-04-14 06:31 | Emergency Department Report ---
ED Abdominal Pain HPI - General Chief Complaint: Abdominal Pain Stated Complaint: CONSTIPATION Time Seen by Provider: 04/14/22 06:08 Source: patient, EMS Mode of arrival: Stretcher Limitations: No Limitations - History of Present Illness Initial Comments: Patient is an 82-year-old male presenting to ED with complaint of mild lower midline abdominal pain that began yesterday evening and states he feels constipated. He currently denies any symptoms. 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 - Related Data Previous Rx's Medication Instructions Recorded Last Taken Type Nitrofurantoin Monohyd/M-Cryst 100 mg PO BID #14 capsule 11/03/17 Unknown Rx [Macrobid 100 mg Capsule] Acetaminophen [Acetaminophen TAB] 650 mg PO Q4-6H PRN #30 tablet 06/11/18 Unknown Rx Calcium Carb/Vit D3/Minerals 1 each PO BID #60 tablet 06/11/18 Unknown Rx [Caltrate Plus] amLODIPine 5 mg PO QDAY #30 tablet 06/11/18 Unknown Rx hydroCHLOROthiazide [HCTZ] 25 mg PO QDAY #30 tablet 06/11/18 Unknown Rx traMADoL [Ultram 50 MG tab] 50 mg PO TID PRN #10 tablet 06/11/18 Unknown Rx Acetamin/Codeine 120-12Mg/5 ml 5 ml PO TID PRN #60 ml 08/18/19 Unknown Rx [Tylenol/Codeine] Benzonatate [Tessalon Perles] 100 mg PO Q8HR #20 capsule 08/18/19 Unknown Rx Docusate Sodium [Colace CAP] 100 mg PO BID PRN #10 capsule 04/14/22 Unknown Rx Allergies Allergy/AdvReac Type Severity Reaction Status Date / Time No Known Allergies Allergy Verified 12/01/21 07:12 ED Review of Systems ROS: Stated complaint: CONSTIPATION Other details as noted in HPI Constitutional: denies: chills, fever Respiratory: denies: cough, shortness of breath, wheezing Cardiovascular: denies: chest pain, palpitations Gastrointestinal: abdominal pain, constipation Musculoskeletal: denies: back pain, joint swelling, arthralgia Skin: denies: rash, lesions Neurological: denies: headache, weakness, paresthesias Psychiatric: denies: anxiety, depression ED Past Medical Hx - Past Medical History Hx Hypertension: Yes Hx Arthritis: Yes Hx HIV: No Additional medical history: Patient reports history of gout - Surgical History Additional Surgical History: rt knee sx. - Social History Smoking Status: Never Smoker Substance Use Type: None - Medications Home Medications: Home Medications Medication Instructions Recorded Confirmed Last Taken Type Nitrofurantoin Monohyd/M-Cryst 100 mg PO BID #14 capsule 11/03/17 06/09/18 Unknown Rx [Macrobid 100 mg Capsule] Acetaminophen [Acetaminophen TAB] 650 mg PO Q4-6H PRN #30 tablet 06/11/18 Unknown Rx Calcium Carb/Vit D3/Minerals 1 each PO BID #60 tablet 06/11/18 Unknown Rx [Caltrate Plus] amLODIPine 5 mg PO QDAY #30 tablet 06/11/18 Unknown Rx hydroCHLOROthiazide [HCTZ] 25 mg PO QDAY #30 tablet 06/11/18 Unknown Rx traMADoL [Ultram 50 MG tab] 50 mg PO TID PRN #10 tablet 06/11/18 Unknown Rx Acetamin/Codeine 120-12Mg/5 ml 5 ml PO TID PRN #60 ml 08/18/19 Unknown Rx [Tylenol/Codeine] Benzonatate [Tessalon Perles] 100 mg PO Q8HR #20 capsule 08/18/19 Unknown Rx Docusate Sodium [Colace CAP] 100 mg PO BID PRN #10 capsule 04/14/22 Unknown Rx ED Physical Exam - General Limitations: No Limitations General appearance: alert, in no apparent distress - Head Head exam: Present: atraumatic, normocephalic - Respiratory Respiratory exam: Present: normal lung sounds bilaterally. Absent: respiratory distress - Cardiovascular Cardiovascular Exam: Present: regular rate, normal rhythm, systolic murmur - GI/Abdominal GI/Abdominal exam: Present: soft. Absent: distended, tenderness - Rectal Rectal exam: Present: deferred - Neurological Exam Neurological exam: Present: alert, oriented X3 - Psychiatric Psychiatric exam: Present: normal affect, normal mood - Skin Skin exam: Present: warm, dry, intact, normal color ED Course Vital Signs 04/14/22 04/14/22 04/14/22 05:03 08:30 08:49 Temperature 98.9 F 97.6 F 97.7 F Pulse Rate 94 H 79 79 Respiratory 16 14 14 Rate Blood Pressure 175/61 Blood Pressure 159/70 175/61 [Right] O2 Sat by Pulse 97 100 100 Oximetry ED Medical Decision Making - Lab Data Result diagrams: 04/14/22 06:24 04/14/22 06:24 - Medical Decision Making Scattered colonic stool present with mild constipation on x-ray of abdomen. No obstructive findings. CBC and CMP grossly unremarkable except for hypocalcemia 7.7 and. Patient was given 2 mg of IV calcium gluconate. Will discharge home on stool softener. Critical care attestation.: If time is entered above; I have spent that time in minutes in the direct care of this critically ill patient, excluding procedure time. ED Disposition Clinical Impression: Constipation, Hypocalcemia Disposition: 01 HOME / SELF CARE / HOMELESS Is pt being admited?: No Condition: Stable Instructions: Constipation, Adult, [id number], Hypocalcemia, Adult Additional Instructions: Please follow-up with your primary doctor within 1 week. You may return if your symptoms worsen. Time of Disposition: 11:53
[2022-04-14 06:42] LABS: Basophils % (Auto) 0.4 % (0.0-1.8); Eosinophils # (Auto) 0.1 K/mm3 (0.0-0.4); Eosinophils % (Auto) 2.1 % (0.0-4.3); Hematocrit 28.9 % (35.5-45.6); Hemoglobin 9.1 gm/dl (11.8-15.2); Lymphocytes # (Auto) 0.7 K/mm3 (1.2-5.4); Lymphocytes % (Auto) 9.5 % (13.4-35.0); Mean Corpuscular HGB Conc 31 % (32-34); Mean Corpuscular Volume 93 fl (84-94); Monocytes # (Auto) 0.4 K/mm3 (0.0-0.8); Monocytes % (Auto) 6.5 % (0.0-7.3); Platelet Count 106 K/mm3 (140-440); Red Blood Count 3.11 M/mm3 (3.65-5.03); Red Cell Distribution Width 17.3 % (13.2-15.2)
[2022-04-14 07:03] LABS: Albumin 3.6 g/dL (3.9-5); Blood Urea Nitrogen 68 mg/dL (9-20); Calcium 7.7 mg/dL (8.4-10.2); Hemolysis Index 4
--- NOTE | 2022-04-14 07:11 | XRay Report ---
ABDOMEN 1 VIEW(S) INDICATION / CLINICAL INFORMATION: Constipation. COMPARISON: None available. FINDINGS: TUBES / LINES: None. BOWEL GAS PATTERN: Scattered colonic stool without significant constipation. Residual contrast materi al. Multiple diverticula noted. ADDITIONAL FINDINGS: Gallbladder absent. Signer Name: Kei Mac MD Signed: 04/14/2022 7:06 AM Workstation Name: [id number]
[2022-04-14 07:19] LABS: Alanine Aminotransferase < 5 units/L (7-56); BUN/Creatinine Ratio 10; Bilirubin,Direct < 0.2 mg/dL (0-0.2)
[2022-04-14] MEDS ORDERED: CALCIUM GLUCONATE 1,000 MG in SODIUM CHLORIDE 0.9% 100 ML IV ONE (07:53)
[2022-04-14 08:32] LABS: Bilirubin,Urine NEG (Negative); Blood,Urine SM (Negative); Color,Urine Yellow (Yellow); Urobilinogen,Urine < 2.0 mg/dL (<2.0)
[2022-04-14 08:37] LABS: Bacteria,Urine 1+ /HPF (Negative); Protein,Urine >500 mg/dL (Negative)
[2022-04-14 08:49] VITALS: BP 175/61
[2022-04-14] MEDS ORDERED: CALC GLUCONATE 1GM/NS 100 ML 1 GM/100 ML BAG IV ONE ×2 (09:00→11:00)
[2022-04-14] MEDS ORDERED: SODIUM CHLORIDE 0.9% 1000 ML 1,000 ML ONE (09:39)
[2022-04-14] MEDS ORDERED: ONDANSETRON 4 MG/2 ML INJ IV SCH (10:30)
[2022-04-14] MEDS ORDERED: MORPHINE 2 MG/1 ML INJ IV SCH (10:30)
== END 2022-04-14 17:17 | disposition home or self-care (01) ==
LOC: ED 04:57
DX: K59.00 Constipation, unspecified (principal); E87.6 Hypokalemia; I10 Essential (primary) hypertension; J45.909 Unspecified asthma, uncomplicated
CPT/HCPCS: 36415; 74018; 80048; 80076; 81001; 83690; 85025; 96365; 96375; 96376; 99284; J0610; J2270; J2405; J7030